=== PATIENT | female | born 1975 | race Native Hawaiian/Other Pacific Islander ===

== ENCOUNTER 2020-12-15 08:57 | Outpatient (CLI) | payer OTHER | END 2020-12-15 21:29 | disposition home or self-care (01) | LOC: MAMMO 08:57 | PROVIDERS: ATTEND Obstetrics & Gynecology | DX: Z12.31 Encounter for screening mammogram for malignant neoplasm of breast (principal) ==

== ENCOUNTER 2022-01-21 08:42 | Outpatient (CLI) | payer OTHER | END 2022-01-21 19:59 | disposition home or self-care (01) | LOC: MAMMO 08:42 | PROVIDERS: ATTEND Obstetrics & Gynecology | DX: Z12.31 Encounter for screening mammogram for malignant neoplasm of breast (principal) ==

== ENCOUNTER 2023-01-02 08:06 | Outpatient (CLI) | payer OTHER | END 2023-01-02 19:03 | disposition home or self-care (01) | LOC: US 08:06 | PROVIDERS: ATTEND Internal Medicine | DX: E03.8 Other specified hypothyroidism (principal) ==

== ENCOUNTER 2023-02-17 10:14 | Outpatient (CLI) | payer OTHER | END 2023-02-17 20:17 | disposition home or self-care (01) | LOC: MAMMO 10:14 | PROVIDERS: ATTEND Internal Medicine | DX: Z12.31 Encounter for screening mammogram for malignant neoplasm of breast (principal) ==